=== PATIENT | female | born 1985 | race African-American/Black ===

== ENCOUNTER 2018-06-16 11:02 | Outpatient (CLI) | payer BC ==
--- NOTE | 2018-06-16 12:40 | ULT ---
ULTRASOUND PELVIC TRANSVAGINAL WITH DOPPLER: History Pelvic pain. COMPARISON: None. TECHNIQUE: Real-time, figueredo scale, color, and spectral analysis of the pelvis performed in the transabdominal and transvaginal approach. FINDINGS: The uterus measures 9.4 x 4.9 x 5.8 cm. Endometrial thickness is 9 mm. The right ovary measures 2.4 x 3.4 x 3 cm and the left ovary measures 3.1 x 3.8 x 2.7 cm. Adequate v ascular flow to both ovaries. No significant free fluid. There appears to be a small inferior body left-sided 8 mm fibroid. IMPRESSION: Small left mid body myometrial fibroid. Otherwise, unremarkable exam. POS: [facility]
== END 2018-06-16 11:03 | disposition home or self-care (01) ==
LOC: SCSULT 11:02
PROVIDERS: ATTEND Nurse Practitioner Women's Health
DX: R10.2 Pelvic and perineal pain (principal); D26.1 Other benign neoplasm of corpus uteri
CPT/HCPCS: 76856